=== PATIENT | male | born 2000 ===

== ENCOUNTER 2023-08-02 20:20 | Emergency (ER) | payer OTHER, SELFPAY ==
[~2023-08-02] VITALS: Ht 185.4 cm; Wt 91.3 kg
[2023-08-02 21:01] VITALS: BP 144/64; TEMP 97.8; O2SAT 100
== END 2023-08-03 00:44 | disposition left against medical advice (07) ==
LOC: M ED 20:20
DX: Z53.21 Procedure and treatment not carried out due to patient leaving prior to being seen by health care provider (principal)